=== PATIENT | male | born 1965 | race Two or more races ===

== ENCOUNTER 2024-04-07 11:16 | Emergency (ER) | payer OTHER ==
[~2024-04-07] VITALS: Ht 177.8 cm; Wt 81.6 kg
[2024-04-07] MEDS ORDERED: ASPIRIN 81 MG TABLET.EC PO ONE (13:00)
[2024-04-07 14:01] LABS: ABG PH 7.421 (7.35-7.45); ABG PO2 94.2 mmHg (80-100); ABG pCO2 42.7 mmHg (35-45); BASE EXCESS 2.4 mmol/l; BICARBONATE 27.2 mmol/l (23-25); SaO2 97.5 %; Tco2 28.5 mmol/l; allen test SATISFACTORY; o2 21 %; puncture site RADIAL LEFT
[2024-04-07 14:55] LABS: HEMATOCRIT 44.1 % (39.0-48.0); HEMOGLOBIN 15.2 g/dL (13-16.00); MEAN CELL VOLUME 94.3 fL (80.0-100.00); MEAN CORPUSCULAR HEMOGLOBIN 32.5 pg (27.00-32.0); MEAN CORPUSCULAR HGB CONC 34.4 g/dl (32.0-36.0); PLATELET COUNT 246 K/uL (150-450); RED BLOOD COUNT 4.68 M/uL (4.00-6.00); RED CELL DISTRIBUTION WIDTH 12.9 % (11.5-14.5)
[2024-04-07 15:09] LABS: INR < 0.93; PARTIAL THROMBOPLASTIN TIME 28.9 SECONDS (22.0-34.0); PROTHROMBIN TIME 10.2 SECONDS (9.0-11.5)
[2024-04-07 15:25] LABS: ALBUMIN 4.6 gm/dL (3.4-5.0); BILIRUBIN TOTAL 0.53 mg/dL (0.3-1.2); CREATININE SERUM 0.76 mg/dL (0.70-1.30); GFR 105.71; GLOBULINA 3.9 G/DL (2.4-3.5); POTASSIUM 4.09 mEq/L (3.5-5.1); TOTAL PROTEIN 8.5 gm/dL (6.4-8.2)
== END 2024-04-07 19:59 | disposition home or self-care (01) ==
LOC: ER 11:18
PROVIDERS: General Practice
DX: R07.9 Chest pain, unspecified (principal)